=== PATIENT | female | born 1985 | race Caucasian/White ===

== ENCOUNTER → 2017-07-19 | Outpatient (CLI) | payer BC ==
[~2017-07-19] MED LIST: MOTRIN 800800 MG/TAB PO; NO HOME MEDICATIONS; PERCOCET 325 MG1 TA2 PO; PREDNISONE20 MG PO; PROCARDIA XL 3030 MG PO; VALTREX 50500 MG/TAB PO
== END ==
LOC: COL.CARD 10:26
DX: H53.9 Unspecified visual disturbance (principal); G43.109 Migraine with aura, not intractable, without status migrainosus

== ENCOUNTER → 2023-01-02 | Outpatient (CLI) | payer BC | LOC: COL.RAD 13:51 | DX: Z85.6 Personal history of leukemia (principal) ==